=== PATIENT | male | born 1950 | race Native Hawaiian/Other Pacific Islander ===

== ENCOUNTER 2017-08-09 14:59 | Outpatient (CLI) | payer OTHER ==
[2017-08-09 15:32] LABS: PLATELET COUNT 205 K/uL (142-355)
[2017-08-09 15:36] LABS: POTASSIUM 4.4 mmol/L (3.6-5.2); SODIUM 138 mmol/L (136-145)
== END 2017-08-09 21:19 | disposition home or self-care (01) ==
LOC: LABW 14:59
PROVIDERS: Internal Medicine Cardiovascular Disease
DX: Z79.899 Other long term (current) drug therapy (principal); Z51.81 Encounter for therapeutic drug level monitoring
CPT/HCPCS: 36415; 80048; 85027; 85651